=== PATIENT | male | born 1965 | race Caucasian/White ===

== ENCOUNTER 2021-04-16 08:22 | Day surgery (SDC) | payer MEDICARE, BC, SELFPAY ==
[2021-04-16 08:34] VITALS: BP 144/93; PULSE 108; RESP 20; TEMP 36.4; O2SAT 97; BMI 25.9
[2021-04-16 08:36] VITALS: BP 144/93; PULSE 108; RESP 20; O2SAT 97
[2021-04-16 08:39] VITALS: BP 156/99; PULSE 109; RESP 18; O2SAT 95
[2021-04-16 08:45] VITALS: BP 156/99; PULSE 109; RESP 20; O2SAT 95
--- NOTE | 2021-04-16 09:13 | [facility].PMPROC ---
- Procedure Date: 04/16/21 Time: 09:14 Anesthesiologist:: Pradeep Page MD Complications:: None Pre-procedure Diagnosis:: Degenerative disc disease of lumbar spine with lumbar radiculopathy symptoms Post-procedure Diagnosis:: Same Indications for Procedure:: Patient is a pleasant 56-year-old white male who we are treating for low back pain with lumbar radiculopathy symptoms. He also does have a history of cancer. We have taken over management of his oral medications as well as his intrathecal pain pump continue with bupivacaine 3.5 mg/day. He is doing very well with this. He is normally seen in our [place] office. He presents today for refill because he could not make his refill appointment in [place]. [place] and drug screen have all been appropriate. He does have an antalgic gait. Motor strength of lower extremities is 5/5. There is no gross sensory deficit. Procedure Details:: Informed consent was obtained and the risks and benefits of the procedure was explained to the patient. The patient was taken to the procedure room. The pump was interrogated. The area over the pump was prepped using ChloraPrep. The pump was accessed with a 22-gauge needle. Approximately 1.5 mL's of the intrathecal solution was withdrawn and discarded. The pump was then refilled with 20 mL's of intrathecal bupivacaine 10 mg per ml. The pump was interrogated and the infusion was continued at 3.5 mg/day. PTC is 0.25 mg up to 6 times a day with a 4-hour lockout. The patient tolerated the procedure well with no complication. Plan and Disposition:: We will follow-up with this patient on her before May 20, 2021 in our [place] office for his next refill.
== END 2021-04-16 08:45 | disposition home or self-care (01) ==
LOC: SC.PAINP 08:28
PROVIDERS: Visit Provider Anesthesiology
DX: M51.16 Intervertebral disc disorders with radiculopathy, lumbar region (principal); Z45.1 Encounter for adjustment and management of infusion pump; E78.5 Hyperlipidemia, unspecified; I50.9 Heart failure, unspecified; I25.10 Atherosclerotic heart disease of native coronary artery without angina pectoris; I25.2 Old myocardial infarction; K21.9 Gastro-esophageal reflux disease without esophagitis; C15.9 Malignant neoplasm of esophagus, unspecified; M19.90 Unspecified osteoarthritis, unspecified site; Z86.73 Personal history of transient ischemic attack (TIA), and cerebral infarction without residual deficits; R56.9 Unspecified convulsions; Z86.711 Personal history of pulmonary embolism
CPT/HCPCS: 95991